=== PATIENT | male | born 1990 | race Hispanic/Latino ===

== ENCOUNTER 2017-09-11 05:06 | Emergency (ER) | payer OTHER ==
[2017-09-11] MEDS ORDERED: Sodium Chloride 0.9% 1,000 ML IV ONE (05:29)
--- NOTE | 2017-09-11 05:29 | C.PDOC ---
History Of Present Illness 27 yo male come in for evaluation of gradual onset of RLQ pain since yesterday associated with nausea. Pt describes pain as stubbing, (+) diaphoresis, localized to RLQ. Otherwise, pt denies fever, chills, recent illness, cough, CP < SOB, vomiting, diarrhea, back pain, UTI sx. At the time of evaluation, appears in pain. Time Seen by Provider: 09/11/17 05:18 Chief Complaint (Nursing): Abdominal Pain History Per: Patient Onset/Duration Of Symptoms: Gradual Past Medical History Reviewed: Historical Data, Nursing Documentation, Vital Signs Vital Signs: Last Vital Signs Temp 97.6 F 09/11/17 05:18 Pulse 63 09/11/17 05:18 Resp 20 09/11/17 05:18 BP 132/80 09/11/17 05:18 Pulse Ox 100 09/11/17 05:29 - Medical History PMH: No Chronic Diseases Surgical History: No Surg Hx Family History: States: No Known Family Hx - Social History Hx Alcohol Use: Yes Hx Substance Use: No Review Of Systems Except As Marked, All Systems Reviewed And Found Negative. Constitutional: Negative for: Fever, Chills ENT: Negative for: Throat Pain, Throat Swelling Cardiovascular: Negative for: Chest Pain Respiratory: Negative for: Cough, Shortness of Breath, Hemoptysis, Wheezing Gastrointestinal: Positive for: Nausea, Abdominal Pain. Negative for: Vomiting , Diarrhea, Melena, Hematochezia, Hematemesis Genitourinary: Negative for: Dysuria, Incontinence Musculoskeletal: Negative for: Neck Pain, Back Pain Skin: Negative for: Rash Neurological: Negative for: Altered Mental Status, Headache, Dizziness Physical Exam - Physical Exam Appears: Well, Non-toxic, No Acute Distress Skin: Normal Color, Warm, Dry, No Rash Head: Normacephalic Eye(s): bilateral: PERRL Nose: No Flaring, No Discharge Oral Mucosa: Moist, No Drooling Tongue: Normal Appearing Lips: Normal Appearing Throat: No Erythema, No Drooling Neck: Trachea Midline, Supple Cardiovascular: Rhythm Regular Respiratory: No Decreased Breath Sounds, No Accessory Muscle Use, No Stridor, No Wheezing Gastrointestinal/Abdominal: Soft, Tenderness (RLQ, moderate), No Distention, No Guarding Back: No CVA Tenderness Extremity: Normal ROM, No Pedal Edema, No Deformity Neurological/Psych: Oriented x3, Normal Speech ED Course And Treatment - Laboratory Results Result Diagrams: 09/11/17 05:40 09/11/17 05:40 Lab Interpretation: No Acute Changes O2 Sat by Pulse Oximetry: 100 Pulse Ox Interpretation: Normal Progress Note: AT 7:00AM, still c/o pain over RLQ. CT abd/pelvis ordered. Case turned over to Abby. Disposition - Disposition Disposition Time: 06:55 Condition: STABLE Forms: [facility] ([place]) - Clinical Impression Clinical Impression: Abdominal pain Physician Patient Turnover Patient Signed Over To: Rula Velasquez Handoff Comments: CT abd/pelvis, re-eval, dispo
[2017-09-11] MEDS ORDERED: Sodium Chloride 0.9% 1,000 ML ONE (05:39)
[2017-09-11 05:42] LABS: BASO # 0.1 K/uL (0.0-0.2); BASO % 1.3 % (0.0-2.0); EOS # 0.3 K/uL (0.0-0.7); EOS % 3.1 % (0.0-4.0); HEMOGLOBIN 13.3 g/dL (12.0-18.0); LYMPH # 3.1 K/uL (1.0-4.3); LYMPH % 31.1 % (20.0-40.0); MEAN CORPUSCULAR HEMOGLOBIN 29.8 pg (27.0-31.0); MEAN CORPUSCULAR HGB CONC 34.7 g/dL (33.0-37.0); MEAN PLATELET VOLUME 9.2 fL (7.2-11.7); MONO # 0.7 K/uL (0.0-0.8); MONO % 7.5 % (0.0-10.0); NEUT # 5.7 K/uL (1.8-7.0); RBC 4.47 Mil/uL (4.40-5.90); RED CELL DISTRIBUTION WIDTH 13.4 % (11.5-14.5); WHITE BLOOD COUNT 9.9 K/uL (4.8-10.8)
[2017-09-11 06:00] LABS: ALB/GLOB RATIO 1.6 (1.0-2.1); ALBUMIN 4.3 g/dL (3.5-5.0); ALT/SGPT 27 U/L (21-72); AST/SGOT 32 U/L (17-59); BLOOD UREA NITROGEN 14 mg/dL (9-20); GFR AFRICAN-AMERICAN > 60; GFR NON-AFRICAN AMERICAN > 60; LIPASE 126 U/L (23-300)
[2017-09-11] MEDS ORDERED: Iohexol 350mg/ml 100 ML ONE (07:12)
[2017-09-11 07:14] LABS: URINE BILIRUBIN NEGATIVE (NEGATIVE); URINE BLOOD NEGATIVE (NEGATIVE); URINE CLARITY Clear (Clear); URINE COLOR Yellow (YELLOW); URINE GLUCOSE (UA) NORMAL (Normal); URINE LEUKOCYTE ESTERASE NEG Leu/uL (Negative); URINE PROTEIN NEGATIVE (NEGATIVE); URINE UROBILINOGEN NORMAL mg/dL (0.2-1.0)
[2017-09-11 07:30] LABS: BARBITURATES, UR NEGATIVE (NEGATIVE); BENZODIAZEPINES, UR NEGATIVE (NEGATIVE); OPIATES, UR NEGATIVE (NEGATIVE); PHENCYCLIDINE, UR NEGATIVE (NEGATIVE)
[2017-09-11 09:22] VITALS: O2SAT 98
--- NOTE | 2017-09-11 10:19 | CT ---
PROCEDURE: CT abdomen pelvis 09/11/2017 HISTORY: RLQ pain COMPARISON: None. TECHNIQUE: Contiguous axial images of the abdomen and pelvis performed following intravenous injection of approximately 100 cc Omnipaque 350 contrast material. Additional 2D sagittal and coronal reformats generated. Radiation dose: Total exam DLP = This CT exam was performed using one or more of the following dose reduction techniques: Automated exposure control, adjustment of the mA and/or kV according to patient size, and/or use of iterative reconstruction technique. Contrast dose: 100 cc Omnipaque 350 FINDINGS: LOWER THORAX: Minimal linear scarring/ atelectatic changes present left lung base . Lung crisostomo are otherwise clear . No infiltrate effusion or basilar pneumothorax . Heart size within range of normal . No significant pericardial effusion . There is a tiny hiatal hernia with slight wall thickening of the distal esophagus likely due to protrusion of gastric mucosa . Possibility of esophagitis not excluded. /atelectasis openUnremarkable. LIVER: Liver demonstrates normal size. Minor fatty hepatic infiltration. Portal and splenic veins are opacified. There is a small approximately 5 mm elliptical shaped low-attenuation focus anterior aspect left lobe liver which is too small to characterize though however this could represent small hemangioma. Follow-up CT scan at interval could be performed to assess stability. GALLBLADDER AND BILE DUCTS: Unremarkable. PANCREAS: Unremarkable. No mass. No ductal dilatation. SPLEEN: Unremarkable. No splenomegaly. ADRENALS: Unremarkable. KIDNEYS AND URETERS: Unremarkable. No stone or hydronephrosis. BLADDER: Grossly unremarkable. REPRODUCTIVE: Unremarkable. APPENDIX: Appendix is not seen with complete certainty however no obvious inflammatory changes right lower quadrant of the abdomen. BOWEL: Evaluation of the bowel is limited due to the lack of oral contrast. Stomach is incompletely distended. Visualized loops of small bowel exhibit relatively normal contour and caliber. No evidence of acute mechanical small bowel obstruction however note is made of a moderate amount of fecalized content within a the distal loop of small bowel in the lower abdomen/ upper pelvis. There is a large amount of stool seen within the cecum at ascending and transverse colon with lesser amount in the remaining colon consistent with fecal retention/ constipation. In the PERITONEUM: Unremarkable. No fluid collection. No free air. LYMPH NODES: Unremarkable. No enlarged lymph nodes. VASCULATURE: Unremarkable. No aortic aneurysm. BONES: No fracture or destructive lesion. OTHER FINDINGS: None. IMPRESSION: Findings consistent with constipation as described with what appears to represent a loop of distal small bowel which contains fecalized content. The appendix is not seen with any certainty however no obvious inflammatory changes right lower quadrant of the abdomen. Mild fatty hepatic infiltration. Small low-attenuation focus left lobe liver too small characterize though this could represent a tiny hemangioma. Follow-up CT scan at interval recommended to assess stability.
[2017-09-11 10:54] VITALS: BP 97/59; PULSE 62; RESP 16; TEMP 97.8
== END 2017-09-11 10:54 | disposition home or self-care (01) ==
LOC: C.ER 05:06
DX: R10.31 Right lower quadrant pain (principal)
CPT/HCPCS: 74177; 80053; 80324; 80345; 80346; 80349; 80353; 80358; 80361; 81001; 82948; 83690; 83992; 85025; 96361; 96374; 96375; 99285; C9113; J1885; J2405; J7040; Q9967